=== PATIENT | female | born 1980 | race African-American/Black ===

== ENCOUNTER 2024-07-09 17:54 | Emergency (ER) | payer MEDICAID ==
[~2024-07-09] VITALS: Ht 162.6 cm; Wt 85.0 kg
[2024-07-09 17:56] VITALS: TEMP 36.9; O2SAT 100
[2024-07-09 18:04] VITALS: O2SAT 100
[2024-07-09 21:30] VITALS: BP 155/91; PULSE 89; RESP 16
[2024-07-09] MEDS: KETOROLAC 30MG/ML VIAL IM ONE (21:30)
[2024-07-09] MEDS ORDERED: IBUP-2030 MT (22:17)
== END 2024-07-09 23:49 | disposition home or self-care (01) ==
LOC: ER 17:54
DX: M25.552 Pain in left hip (principal); M54.50 Low back pain, unspecified; M79.605 Pain in left leg; V03.00XA Pedestrian on foot injured in collision with car, pick-up truck or van in nontraffic accident, initial encounter; Y93.89 Activity, other specified; Y92.481 Parking lot as the place of occurrence of the external cause; Y99.8 Other external cause status
CPT/HCPCS: 99283; 73502; 96372; J1885